=== PATIENT | female | born 1965 | race Caucasian/White ===

== ENCOUNTER 2018-11-25 17:19 | Outpatient (REF) | payer BC, SELFPAY ==
--- NOTE | 2018-11-25 16:00 | PAPFT_PTH ---
PATIENT: RINA DUARTE LOC: [facility] U#:[id number] AGE/SX: 53/F ROOM: RE11/25/[address]: Heather Deshpande MD : 1965 BED: DIS: 11/25/2018 SPEC #: [id number] RECD: 11/25/18 17:36 STATUS: BRANDON REQ #: [id number] ELA: 11/25/18 16:[address]: Haether Deshpande DEPT: [facility] Cytology RECD BY: Evonne Stephenson ENTERED: 11/25/18 17:36 SP TYPE: PAPFT OTHR DR: Madhuri Holly Tissues: 1 - CX/ENDOCX FOR PAP SMEARS Procedures: PAP THIN PREP/[facility] Screening HPV DNA PROBE Comments: [id number]
== END 2018-11-25 17:39 ==
LOC: LBN 17:19
PROVIDERS: PCP Family Medicine; Visit Provider Obstetrics & Gynecology
DX: Z12.4 Encounter for screening for malignant neoplasm of cervix (principal); Z11.51 Encounter for screening for human papillomavirus (HPV)
CPT/HCPCS: 88142; 87624